=== PATIENT | male | born 1955 | race Caucasian/White ===

== ENCOUNTER 2018-11-11 10:39 | Emergency (ER) | payer SELFPAY ==
[~2018-11-11] VITALS: Ht 185.4 cm; Wt 69.4 kg
[2018-11-11 11:02] VITALS: Ht 185.4 cm; Wt 69.4 kg
[2018-11-11 12:21] LABS: BASOPHIL % 0.8 % (0-2); PLATELET COUNT 277 x10^3mcL (130-400)
[2018-11-11 12:25] LABS: CALCIUM 8.4 mg/dL (8.5-10.1); CARBON DIOXIDE 33.3 mmol/L (21-32); CHLORIDE SERUM 107 mmol/L (98-107); CREATININE SERUM 0.9 mg/dL (0.7-1.3); GFR1 > 60 mL/min; GLUCOSE SERUM 84 mg/dL (74-106); POTASSIUM SERUM 4.1 mmol/L (3.5-5.1); SODIUM SERUM 144 mmol/L (136-145)
[2018-11-11 12:28] LABS: ALKALINE PHOSPHATASE 103 U/L (46-116); ALT/SGPT 47 U/L (16-63); AMYLASE 55 U/L (25-115); AST/SGOT 40 U/L (15-37); BILIRUBIN TOTAL 0.36 mg/dL (0.20-1.00); LIPASE 104 IU/L (73-393); TOTAL PROTEIN, SERUM 6.2 g/dL (6.4-8.2)
[2018-11-11 12:32] LABS: ALBUMIN 2.9 g/dL (3.4-5.0)
[2018-11-11 13:10] VITALS: BP 143/70
== END 2018-11-11 16:04 | disposition left against medical advice (07) ==
LOC: ED 10:39
PROVIDERS: Emergency Medicine
DX: J18.9 Pneumonia, unspecified organism (principal); B86 Scabies; R55 Syncope and collapse
CPT/HCPCS: 36415; J1885; J7620; Q0092